=== PATIENT | male | born 1975 | race Two or more races ===

== ENCOUNTER 2017-06-20 23:57 | Emergency (ER) | payer SELFPAY ==
[~2017-06-20] VITALS: Ht 175.3 cm; Wt 84.8 kg
== END 2017-06-21 03:00 | disposition home or self-care (01) ==
LOC: CED 23:57
DX: T78.3XXA Angioneurotic edema, initial encounter (principal); I10 Essential (primary) hypertension; F17.200 Nicotine dependence, unspecified, uncomplicated
CPT/HCPCS: 36415; 96374; 96375; 99283; J1200; J2930